=== PATIENT | male | born 1990 | race Caucasian/White ===

== ENCOUNTER 2016-07-24 23:28 | Emergency (ER) | payer MEDICAID ==
[~2016-07-24] VITALS: Ht 195.6 cm; Wt 165.5 kg
[2016-07-25] MEDS ORDERED: ASPIRIN 81MG TABLET PO ONE (01:00)
[2016-07-25 01:19] LABS: BASOPHILS % 0.5 % (0.0-2.0); EOSINOPHILS % 1.1 % (0.0-5.0); HEMATOCRIT. 45.7 % (42.0-52.0); HEMOGLOBIN. 15.5 g/dL (14.0-18.0); LYMPHOCYTES % 32.3 % (20.0-50.0); MEAN CORPUSCULAR HEMOGLOBIN 29.8 pg (28.0-32.0); MEAN CORPUSCULAR HGB CONC 33.9 g/dL (31.0-37.0); MEAN CORPUSCULAR VOLUME 87.8 fL (80.0-94.0); MEAN PLATELET VOLUME 8.8 fl (7.4-10.4); MONOCYTES % 5.6 % (2.0-8.0); NEUTROPHILS % 60.5 % (40.0-76.0); PLATELET 228 x1000/uL (130-400); RED BLOOD CELL COUNT 5.21 mill/uL (4.7-6.1); RED CELL DISTRIBUTION WIDTH 12.8 % (11.6-14.6); WHITE BLOOD COUNT 9.1 x1000/uL (4.5-11.0)
[2016-07-25 01:24] LABS: PROTHROMBIN TIME 10.8 sec
[2016-07-25 01:32] LABS: ALANINE AMINOTRANSFERASE 265 IU/L (13-61); ALBUMIN 3.4 g/dL (3.4-5.0); ANION GAP 14; CALCIUM 8.8 mg/dL (8.5-10.1); CARBON DIOXIDE 27 mEq/L (21-32); CHLORIDE 100 mEq/L (98-107); INDEX HEMOLYSI 1 (1-3); INDEX ICTERIC 1 (1-4); INDEX LIPEMIC 1 (1-3); TROPONIN I < 0.02 ng/mL (0.00-0.04); UREA NITROGEN BLOOD 14 mg/dL (7-21); eGFR > 60 mL/min (>60)
[2016-07-25 03:56] VITALS: BP 127/96
== END 2016-07-25 07:54 | disposition home or self-care (01) ==
LOC: ER 07-25 07:54
DX: R07.9 Chest pain, unspecified (principal); E11.9 Type 2 diabetes mellitus without complications; Z87.891 Personal history of nicotine dependence
CPT/HCPCS: 36415; 71010; 80053; 84484; 85025; 85610; 93005; 99285; Z7610

== ENCOUNTER 2016-11-22 14:18 | Emergency (ER) | payer MEDICAID ==
[~2016-11-22] VITALS: Ht 185.4 cm; Wt 116.0 kg
[2016-11-22] MEDS: IBUPROFEN 600MG TABLET PO STA (15:30)
[2016-11-22 16:07] LABS: BASOPHILS % 0.2 % (0.0-2.0); EOSINOPHILS % 1.1 % (0.0-5.0); HEMATOCRIT. 44.6 % (42.0-52.0); HEMOGLOBIN. 15.3 g/dL (14.0-18.0); LYMPHOCYTES % 24.2 % (20.0-50.0); MEAN CORPUSCULAR HEMOGLOBIN 29.9 pg (28.0-32.0); MEAN CORPUSCULAR VOLUME 87.1 fL (80.0-94.0); MEAN PLATELET VOLUME 8.6 fl (7.4-10.4); MONOCYTES % 9.3 % (2.0-8.0); NEUTROPHILS % 65.2 % (40.0-76.0); PLATELET 221 x1000/uL (130-400); RED BLOOD CELL COUNT 5.12 mill/uL (4.7-6.1)
[2016-11-22 16:11] LABS: CARBON DIOXIDE 30 mEq/L (21-32); CHLORIDE 98 mEq/L (98-107)
[2016-11-22 16:14] LABS: TROPONIN I < 0.02 ng/mL (0.00-0.04)
[2016-11-22 16:54] VITALS: BP 128/68
== END 2016-11-22 17:37 | disposition left against medical advice (07) ==
LOC: ER 15:20
DX: R07.9 Chest pain, unspecified (principal); E11.65 Type 2 diabetes mellitus with hyperglycemia; I51.9 Heart disease, unspecified
CPT/HCPCS: 36415; 71010; 80053; 82962; 84484; 85025; 93005; 99285; Z7610

== ENCOUNTER 2017-02-15 20:56 | Emergency (ER) | payer MEDICAID ==
[~2017-02-15] VITALS: Ht 195.6 cm; Wt 159.0 kg
[2017-02-15] MEDS ORDERED: SODIUM CHLORIDE 0.9% 1,000 ML IV ONE (21:50)
[2017-02-15 22:29] LABS: BASOPHILS % 1.3 % (0.0-2.0); EOSINOPHILS % 0.9 % (0.0-5.0); HEMATOCRIT. 44.8 % (42.0-52.0); HEMOGLOBIN. 15.4 g/dL (14.0-18.0); LYMPHOCYTES % 28.5 % (20.0-50.0); MEAN CORPUSCULAR HEMOGLOBIN 29.9 pg (28.0-32.0); MEAN CORPUSCULAR VOLUME 87.1 fL (80.0-94.0); MEAN PLATELET VOLUME 8.4 fl (7.4-10.4); MONOCYTES % 6.5 % (2.0-8.0); NEUTROPHILS % 62.8 % (40.0-76.0); PLATELET 242 x1000/uL (130-400); RED BLOOD CELL COUNT 5.14 mill/uL (4.7-6.1); RED CELL DISTRIBUTION WIDTH 13.2 % (11.6-14.6)
[2017-02-15 22:34] LABS: INR 1.1; PROTHROMBIN TIME 11.1 sec (9.4-11.6)
[2017-02-15 22:44] LABS: CARBON DIOXIDE 25 mEq/L (21-32); CHLORIDE 98 mEq/L (98-107); TROPONIN I < 0.02 ng/mL (0.00-0.04)
[2017-02-16] MEDS ORDERED: CEFAZOLIN 1000MG PREMIX 50 ML IV ONE (00:45)
[2017-02-16] MEDS ORDERED: KETOROLAC 15MG/ML VIAL IV ONE (01:15)
[2017-02-16 01:24] VITALS: BP 157/86
== END 2017-02-16 02:15 | disposition home or self-care (01) ==
LOC: ER 20:56
DX: R07.89 Other chest pain (principal); L03.116 Cellulitis of left lower limb; F17.290 Nicotine dependence, other tobacco product, uncomplicated; E11.9 Type 2 diabetes mellitus without complications
CPT/HCPCS: 36415; 71010; 80053; 82962; 84484; 85025; 85610; 93005; 96361; 96365; 96375; 99285; 99406; J0690; J1885; J7030; Z7610

== ENCOUNTER 2017-06-04 18:43 | Emergency (ER) | payer MEDICAID ==
[~2017-06-04] VITALS: Ht 182.9 cm; Wt 163.0 kg
[2017-06-04 19:18] VITALS: BP 132/78
== END 2017-06-04 21:45 | disposition left against medical advice (07) ==
LOC: ER 21:19
DX: R07.9 Chest pain, unspecified (principal); Z53.21 Procedure and treatment not carried out due to patient leaving prior to being seen by health care provider

== ENCOUNTER 2017-12-06 00:10 | Emergency (ER) | payer MEDICAID ==
[~2017-12-06] VITALS: Ht 182.9 cm; Wt 150.0 kg
[2017-12-06] MEDS ORDERED: SODIUM CHLORIDE 0.9% 1,000 ML IV ONE (01:15)
[2017-12-06 01:24] LABS: BASOPHILS % 0.3 % (0.0-2.0); EOSINOPHILS % 1.6 % (0.0-5.0); HEMATOCRIT. 46.2 % (42.0-52.0); LYMPHOCYTES % 30.3 % (20.0-50.0); MEAN CORPUSCULAR HEMOGLOBIN 30.9 pg (28.0-32.0); MEAN CORPUSCULAR VOLUME 89.3 fL (80.0-94.0); MEAN PLATELET VOLUME 8.4 fl (7.4-10.4); MONOCYTES % 11.2 % (2.0-8.0); NEUTROPHILS % 56.6 % (40.0-76.0); PLATELET 193 x1000/uL (130-400); RED BLOOD CELL COUNT 5.17 mill/uL (4.7-6.1); RED CELL DISTRIBUTION WIDTH 12.7 % (11.6-14.6)
[2017-12-06] MEDS ORDERED: KETOROLAC 30MG/ML VIAL IV ONE (01:30)
[2017-12-06 01:31] LABS: CHLORIDE 99 mEq/L (98-107)
[2017-12-06 01:32] LABS: INR 1.1; PARTIAL THROMBOPLASTIN TIME 26.5 sec (23.4-31.0); PROTHROMBIN TIME 10.7 sec (9.1-11.1)
[2017-12-06 01:44] LABS: BETA HYDROXYBUTYRATE 0.1 mMol/L (0.0-0.3)
[2017-12-06 04:35] VITALS: BP 123/80
== END 2017-12-06 04:36 | disposition home or self-care (01) ==
LOC: ER 00:10
DX: R07.89 Other chest pain (principal); E11.9 Type 2 diabetes mellitus without complications; F17.200 Nicotine dependence, unspecified, uncomplicated
CPT/HCPCS: 36415; 71045; 80053; 82010; 83036; 83690; 84484; 85025; 85610; 85730; 93005; 96361; 96374; 99285; 99406; J1885; J7030

== ENCOUNTER 2018-01-25 00:58 | Emergency (ER) | payer MEDICAID ==
[~2018-01-25] VITALS: Ht 182.9 cm; Wt 150.0 kg
[2018-01-25 03:10] VITALS: BP 153/91
== END 2018-01-25 05:07 | disposition left against medical advice (07) ==
LOC: ER 05:03
DX: N50.811 Right testicular pain (principal); Z53.21 Procedure and treatment not carried out due to patient leaving prior to being seen by health care provider

== ENCOUNTER 2018-01-25 15:37 | Emergency (ER) | payer MEDICAID ==
[~2018-01-25] VITALS: Ht 185.4 cm; Wt 160.0 kg
[2018-01-25] MEDS ORDERED: KETOROLAC 60MG/2ML VIAL IM ONE (19:30)
[2018-01-25 20:23] LABS: CLARITY URINE CLEAR (CLEAR); COLOR URINE YELLOW (YELLOW); KETONES URINE NEGATIVE (NEGATIVE); LEUKOCYTE ESTERASE URINE NEGATIVE (NEGATIVE); NITRITE URINE NEGATIVE (NEGATIVE); OCCULT BLOOD URINE NEGATIVE (NEGATIVE); PROTEIN URINE NEGATIVE (NEGATIVE); SPECIFIC GRAVITY URINE 1.045 (1.005-1.030); UROBILINOGEN URINE 0.2 E.U./dL (0.2-1.0)
[2018-01-25] MEDS ORDERED: ACETAMINOPHEN WITH CODEINE 300/30MG TABLET PO ONE (22:30)
[2018-01-25 22:37] VITALS: BP 123/70
== END 2018-01-25 22:38 | disposition home or self-care (01) ==
LOC: ER 15:37
DX: N50.811 Right testicular pain (principal); E11.9 Type 2 diabetes mellitus without complications
CPT/HCPCS: 76870; 81003; 93976; 96372; 99285; J1885

== ENCOUNTER 2018-02-27 18:45 | Emergency (ER) | payer MEDICAID ==
[~2018-02-27] VITALS: Ht 182.9 cm; Wt 119.0 kg
[2018-02-27 18:56] VITALS: BP 146/62
== END 2018-02-27 21:30 | disposition left against medical advice (07) ==
LOC: ER 19:38
DX: Z53.21 Procedure and treatment not carried out due to patient leaving prior to being seen by health care provider (principal)

== ENCOUNTER 2018-09-29 11:42 | Emergency (ER) | payer MEDICAID ==
[~2018-09-29] VITALS: Ht 182.9 cm; Wt 155.0 kg
[2018-09-29] MEDS ORDERED: FAMOTIDINE 20MG/2ML VIAL IV ONE (12:45)
[2018-09-29] MEDS ORDERED: DEXAMETHASONE 4MG/ML 1ML VIAL IV ONE (12:45)
[2018-09-29] MEDS ORDERED: DIPHENHYDRAMINE 50MG/ML VIAL IV ONE (12:45)
[2018-09-29 13:02] LABS: BASOPHILS % 0.6 % (0.0-2.0); EOSINOPHILS % 1.2 % (0.0-5.0); HEMATOCRIT. 43.1 % (42.0-52.0); HEMOGLOBIN. 15.2 g/dL (14.0-18.0); LYMPHOCYTES % 26.2 % (20.0-50.0); MEAN CORPUSCULAR HEMOGLOBIN 31.8 pg (28.0-32.0); MEAN CORPUSCULAR VOLUME 90.4 fL (80.0-94.0); MEAN PLATELET VOLUME 7.9 fl (7.4-10.4); MONOCYTES % 8.8 % (2.0-8.0); NEUTROPHILS % 63.2 % (40.0-76.0); PLATELET 200 x1000/uL (130-400); RED BLOOD CELL COUNT 4.77 mill/uL (4.7-6.1); RED CELL DISTRIBUTION WIDTH 12.5 % (11.6-14.6)
[2018-09-29 13:08] LABS: CHLORIDE 101 mEq/L (98-107)
[2018-09-29 13:09] LABS: PROTHROMBIN TIME 10.7 sec (9.6-11.0)
[2018-09-29 16:10] VITALS: BP 145/75
[2018-10-01 04:16] LABS: HIV SCREEN 4G Non Reactive (Non Reactive)
== END 2018-09-29 15:15 | disposition home or self-care (01) ==
LOC: ER 12:16
DX: T78.40XA Allergy, unspecified, initial encounter (principal); Z88.0 Allergy status to penicillin; X58.XXXA Exposure to other specified factors, initial encounter
CPT/HCPCS: 36415; 80053; 85025; 85610; 87389; 96374; 96375; 99283; J1100; J1200; J3490

== ENCOUNTER 2018-10-29 16:46 | Emergency (ER) | payer MEDICAID ==
[~2018-10-29] VITALS: Ht 167.6 cm; Wt 151.0 kg
[2018-10-29] MEDS ORDERED: IBUPROFEN 600MG TABLET PO STA (20:17)
[2018-10-29 21:21] VITALS: BP 150/90
[2018-10-29] MEDS ORDERED: HYDROCORTISONE 1% OINT 28.35GM TOP SCH (22:00)
== END 2018-10-29 21:21 | disposition home or self-care (01) ==
LOC: ER 17:37
DX: R07.89 Other chest pain (principal); L30.9 Dermatitis, unspecified; F17.200 Nicotine dependence, unspecified, uncomplicated; E11.9 Type 2 diabetes mellitus without complications
CPT/HCPCS: 71045; 93005; 99283; 99406; Z7610

== ENCOUNTER 2018-11-29 12:46 | Emergency (ER) | payer MEDICAID ==
[~2018-11-29] VITALS: Ht 185.4 cm; Wt 168.0 kg
[2018-11-29] MEDS ORDERED: KETOROLAC 30MG/ML VIAL IV STA (13:58)
[2018-11-29] MEDS ORDERED: SODIUM CHLORIDE 0.9% 1,000 ML IV ONE (13:58)
[2018-11-29] MEDS ORDERED: MORPHINE SULFATE 4 MG/ML CPJ (NOT FOR IM USE) IV STA (13:58)
[2018-11-29] MEDS ORDERED: MAGNESIUM/ALUMINUM HYDROXIDE/SIMETHICONE 30ML UDC PO STA (13:58)
[2018-11-29] MEDS ORDERED: FAMOTIDINE 20MG/2ML VIAL IV STA (13:58)
[2018-11-29] MEDS ORDERED: ONDANSETRON HCL 4MG/2ML INJ IV STA (13:58)
[2018-11-29 14:42] LABS: BASOPHILS % 0.2 % (0.0-2.0); EOSINOPHILS % 0.4 % (0.0-5.0); HEMOGLOBIN. 16.7 g/dL (14.0-18.0); LYMPHOCYTES % 8.2 % (20.0-50.0); MEAN CORPUSCULAR HEMOGLOBIN 31.8 pg (28.0-32.0); MEAN CORPUSCULAR VOLUME 89.6 fL (80.0-94.0); MEAN PLATELET VOLUME 8.7 fl (7.4-10.4); MONOCYTES % 5.4 % (2.0-8.0); NEUTROPHILS % 85.8 % (40.0-76.0); PLATELET 213 x1000/uL (130-400); RED BLOOD CELL COUNT 5.25 mill/uL (4.7-6.1); RED CELL DISTRIBUTION WIDTH 12.2 % (11.6-14.6)
[2018-11-29 14:47] LABS: CHLORIDE 100 mEq/L (98-107); PROTHROMBIN TIME 10.5 sec (9.6-11.0)
[2018-11-29 14:51] LABS: ETHANOL BLOOD < 10 mg/dL
[2018-11-29] MEDS ORDERED: INSULIN REGULAR (HUMULIN R) 300UNITS/3ML SUBCUT ONE (15:30)
[2018-11-29] MEDS ORDERED: METOCLOPRAMIDE HCL 10MG/2ML VIAL IV ONE (15:30)
[2018-11-29] MEDS ORDERED: TRAMADOL 50MG TABLET PO ONE (15:30)
[2018-11-29 16:00] VITALS: BP 132/78
== END 2018-11-29 16:01 | disposition home or self-care (01) ==
LOC: ER 12:46
DX: E11.65 Type 2 diabetes mellitus with hyperglycemia (principal); K31.84 Gastroparesis; R11.2 Nausea with vomiting, unspecified
CPT/HCPCS: 36415; 74176; 80053; 80320; 83690; 84484; 85025; 85610; 96361; 96372; 96374; 96375; 99284; J1815; J1885; J2270; J2765; J3490; J7030; G0480

== ENCOUNTER 2018-12-20 09:30 | Emergency (ER) | payer MEDICAID ==
[~2018-12-20] VITALS: Ht 182.9 cm; Wt 160.0 kg
[2018-12-20] MEDS ORDERED: DEXAMETHASONE 10 MG/ML VIAL IM ONE (11:00)
[2018-12-20] MEDS ORDERED: FAMOTIDINE 20MG TABLET PO ONE (11:00)
[2018-12-20] MEDS ORDERED: DIPHENHYDRAMINE 50MG CAPSULE PO ONE (11:00)
[2018-12-20 11:24] VITALS: BP 126/84
== END 2018-12-20 11:25 | disposition home or self-care (01) ==
LOC: ER 09:30
DX: T78.49XA Other allergy, initial encounter (principal); X58.XXXA Exposure to other specified factors, initial encounter; E11.9 Type 2 diabetes mellitus without complications
CPT/HCPCS: 96372; 99283; J1100; Q0163

== ENCOUNTER 2019-08-31 09:22 | Emergency (ER) | payer MEDICAID ==
[~2019-08-31] VITALS: Ht 182.9 cm; Wt 145.5 kg
[2019-08-31 09:36] VITALS: BP 151/78
== END 2019-08-31 10:35 | disposition home or self-care (01) ==
LOC: ER 09:22
DX: J11.1 Influenza due to unidentified influenza virus with other respiratory manifestations (principal); E11.9 Type 2 diabetes mellitus without complications; R09.81 Nasal congestion; M79.10 Myalgia, unspecified site; Z20.828 Contact with and (suspected) exposure to other viral communicable diseases
CPT/HCPCS: 99281

== ENCOUNTER 2019-08-31 22:02 | Emergency (ER) | payer MEDICAID ==
[~2019-08-31] VITALS: Ht 182.9 cm; Wt 145.0 kg
[2019-08-31] MEDS ORDERED: IBUPROFEN 600MG TABLET PO STA (22:49)
[2019-08-31] MEDS ORDERED: SODIUM CHLORIDE 0.9% 1,000 ML IV ONE (23:03)
[2019-08-31 23:58] LABS: BASOPHILS % 0.3 % (0.0-2.0); EOSINOPHILS % 0.2 % (0.0-5.0); HEMATOCRIT. 48.9 % (42.0-52.0); HEMOGLOBIN. 17.1 g/dL (14.0-18.0); LYMPHOCYTES % 39.1 % (20.0-50.0); MEAN CORPUSCULAR HEMOGLOBIN 31.4 pg (28.0-32.0); MEAN CORPUSCULAR VOLUME 90.1 fL (80.0-94.0); MEAN PLATELET VOLUME 9.3 fl (7.4-10.4); MONOCYTES % 11.4 % (2.0-8.0); PLATELET 159 x1000/uL (130-400); RED BLOOD CELL COUNT 5.43 mill/uL (4.7-6.1); RED CELL DISTRIBUTION WIDTH 12.6 % (11.6-14.6)
[2019-09-01] MEDS ORDERED: CEFTRIAXONE 1 G PREMIX 50 ML IV NR (01:30)
[2019-09-01 01:33] LABS: CHLORIDE 103 mEq/L (98-107)
[2019-09-01 02:37] VITALS: BP 126/79
== END 2019-09-01 02:38 | disposition home or self-care (01) ==
LOC: ER 22:02
DX: J18.9 Pneumonia, unspecified organism (principal); Z03.818 Encounter for observation for suspected exposure to other biological agents ruled out; R74.0 Nonspecific elevation of levels of transaminase and lactic acid dehydrogenase [LDH]; E11.65 Type 2 diabetes mellitus with hyperglycemia
CPT/HCPCS: 36415; 71045; 80053; 82962; 85025; 87804; 96361; 96365; 99284; J0696; J7030

== ENCOUNTER 2019-09-22 22:25 | Emergency (ER) | payer MEDICAID ==
[~2019-09-22] VITALS: Ht 182.9 cm; Wt 101.0 kg
[2019-09-22] MEDS ORDERED: AMOXICILLIN 500 MG CAPSULE PO ONE (23:15)
[2019-09-22] MEDS ORDERED: KETOROLAC 30MG/ML VIAL IM ONE (23:15)
[2019-09-22 23:39] VITALS: BP 129/75
== END 2019-09-22 23:40 | disposition home or self-care (01) ==
LOC: ER 22:25
DX: K04.7 Periapical abscess without sinus (principal); R03.0 Elevated blood-pressure reading, without diagnosis of hypertension; E11.9 Type 2 diabetes mellitus without complications
CPT/HCPCS: 96372; 99283; J1885

== ENCOUNTER 2020-04-02 14:35 | Emergency (ER) | payer MEDICAID ==
[~2020-04-02] VITALS: Ht 182.9 cm; Wt 118.0 kg
[2020-04-02 15:19] VITALS: BP 110/47
== END 2020-04-02 19:17 | disposition left against medical advice (07) ==
LOC: ER 14:35
DX: Z53.21 Procedure and treatment not carried out due to patient leaving prior to being seen by health care provider (principal); I49.9 Cardiac arrhythmia, unspecified
CPT/HCPCS: 93005

== ENCOUNTER 2021-02-06 08:54 | Emergency (ER) | payer MEDICAID ==
[~2021-02-06] VITALS: Ht 185.4 cm; Wt 136.0 kg
[2021-02-06] MEDS ORDERED: IBUPROFEN 600MG TABLET PO STA (09:25)
[2021-02-06 12:26] VITALS: BP 140/79
== END 2021-02-06 12:29 | disposition home or self-care (01) ==
LOC: ER 09:05
DX: R51.9 Headache, unspecified (principal); R06.02 Shortness of breath; E11.9 Type 2 diabetes mellitus without complications; I10 Essential (primary) hypertension; F17.290 Nicotine dependence, other tobacco product, uncomplicated; F14.10 Cocaine abuse, uncomplicated; F12.10 Cannabis abuse, uncomplicated
CPT/HCPCS: 93005; 99291; 99406

== ENCOUNTER 2021-04-02 12:29 | Emergency (ER) | payer MEDICAID ==
[~2021-04-02] VITALS: Ht 182.9 cm; Wt 127.0 kg
[2021-04-02 12:38] VITALS: BP 149/88
[2021-04-02] MEDS ORDERED: SULF1TAB48 MT (12:43)
[2021-04-02] MEDS ORDERED: CEPH500T MT (12:43)
[2021-04-02] MEDS ORDERED: ACETAMINOPHEN WITH CODEINE 300/30MG TABLET PO ONE (12:45)
== END 2021-04-02 13:11 | disposition home or self-care (01) ==
LOC: ER 12:34
DX: L03.319 Cellulitis of trunk, unspecified (principal); F14.10 Cocaine abuse, uncomplicated; F12.10 Cannabis abuse, uncomplicated; E11.9 Type 2 diabetes mellitus without complications; I10 Essential (primary) hypertension
CPT/HCPCS: 99283

== ENCOUNTER 2021-04-06 13:35 | Inpatient (IN) | payer MEDICAID ==
[~2021-04-06] VITALS: Ht 182.9 cm; Wt 148.8 kg
[~2021-04-06 13:35] MED LIST: CEPH500T MT; SULF1TAB48 MT
[2021-04-06] MEDS ORDERED: MORPHINE SULFATE 4 MG/ML CPJ (NOT FOR IM USE) IV STA (16:49)
[2021-04-06] MEDS ORDERED: SODIUM CHLORIDE 0.9% 1,000 ML IV ONE (17:00)
[2021-04-06] MEDS ORDERED: CLINDAMYCIN 600 MG in DEXTROSE 5% WATER 50 ML IV ONE (17:00)
[2021-04-06] MEDS ORDERED: CLINDAMYCIN 600MG PREMIX 50 ML IV SCH (17:30)
[2021-04-06 18:01] LABS: BASOPHILS % 0.4 % (0.0-2.0); EOSINOPHILS % 1.7 % (0.0-5.0); HEMATOCRIT. 45.2 % (42.0-52.0); HEMOGLOBIN. 15.3 g/dL (14.0-18.0); LYMPHOCYTES % 8.6 % (20.0-50.0); MEAN CORPUSCULAR HEMOGLOBIN 30.3 pg (28.0-32.0); MEAN CORPUSCULAR VOLUME 89.4 fL (80.0-94.0); MEAN PLATELET VOLUME 8.5 fl (7.4-10.4); MONOCYTES % 7.7 % (2.0-8.0); NEUTROPHILS % 81.6 % (40.0-76.0); PLATELET 279 x1000/uL (130-400); RED BLOOD CELL COUNT 5.06 mill/uL (4.7-6.1); RED CELL DISTRIBUTION WIDTH 12.1 % (11.6-14.6)
[2021-04-06 18:04] LABS: CHLORIDE 100 mEq/L (98-107)
[2021-04-06 21:45] VITALS: BP 126/52
[2021-04-06 23:20] VITALS: BP 139/68
[2021-04-06] MEDS ORDERED: METF-414 PO (23:52)
[2021-04-07] VITALS: BP 131/81
[2021-04-07] MEDS ORDERED: CLINDAMYCIN 600 MG in DEXTROSE 5% WATER 50 ML IV SCH
[2021-04-07] MEDS ORDERED: DEXTROSE 50% WATER 50ML SYRINGE IV PRN
[2021-04-07] MEDS ORDERED: METFORMIN HCL 500MG TABLET PO PRN
[2021-04-07] MEDS ORDERED: ALBUTEROL 6.7GM HFA INHALER ORI PRN
[2021-04-07] MEDS: HYDROCODONE/ACETAMINOPHEN 5/325MG TABLET PO PRN ×3 (01:23→21:10)
[2021-04-07] MEDS: ACETAMINOPHEN 325MG TABLET PO PRN ×3 (01:23→21:11)
[2021-04-07 04:00] VITALS: BP 129/63
[2021-04-07] MEDS: CLINDAMYCIN 600MG PREMIX 50 ML IV SCH ×3 (04:58→21:13)
[2021-04-07] MEDS: BLOOD SUGAR DIAGNOSTIC STRIP TEST SCH ×4 (06:26→21:09)
[2021-04-07 09:00] VITALS: BP 132/88
[2021-04-07] MEDS ORDERED: METFORMIN HCL 500MG TABLET PO SCH (09:00)
[2021-04-07] MEDS ORDERED: DEXAMETHASONE 4MG/ML 1ML VIAL IV SCH (09:00)
[2021-04-07 09:55] LABS: HEMATOCRIT 40.4 % (42.0-52.0); MEAN CORPUSCULAR HEMOGLOBIN 30.9 pg (28.0-32.0); MEAN CORPUSCULAR VOLUME 89.3 fL (80.0-94.0); PLATELET 254 x1000/uL (130-400); RED BLOOD CELL COUNT 4.52 mill/uL (4.7-6.1)
[2021-04-07] MEDS ORDERED: INSULIN GLARGINE UD 100 UNITS/ML SYR SUBCUT SCH ×2 (10:00→22:00)
[2021-04-07 10:07] LABS: CHLORIDE 98 mEq/L (98-107)
[2021-04-07] MEDS: METFORMIN HCL 500MG TABLET PO SCH ×2 (10:10→18:04)
[2021-04-07] MEDS: INSULIN LISPRO 100 UNITS/ML SUBCUT SCH ×4 (10:12→21:20)
[2021-04-07 10:17] LABS: LDL CHOLESTEROL 72 mg/dL (5-100)
[2021-04-07 10:20] LABS: HDL CHOLESTEROL 21 mg/dL (40-59)
[2021-04-07 12:00] VITALS: BP 121/82
[2021-04-07 16:00] VITALS: BP 127/80
[2021-04-07 20:00] VITALS: BP 132/79
== END 2021-04-07 22:17 | disposition left against medical advice (07) | DRG 720 ==
LOC: ER 13:35 → ENRESERV 20:30 → 6EST 21:38 → 7WST 22:31
PROVIDERS: ADMIT Internal Medicine; ATTEND Internal Medicine
DX: A41.9 Sepsis, unspecified organism (principal); U07.1 COVID-19; E88.09 Other disorders of plasma-protein metabolism, not elsewhere classified; L02.212 Cutaneous abscess of back [any part, except buttock and flank]; L03.312 Cellulitis of back [any part except buttock and flank]; E11.65 Type 2 diabetes mellitus with hyperglycemia; F19.10 Other psychoactive substance abuse, uncomplicated; Z53.29 Procedure and treatment not carried out because of patient's decision for other reasons; R74.01 Elevation of levels of liver transaminase levels; E66.9 Obesity, unspecified; Z68.41 Body mass index [BMI] 40.0-44.9, adult; Z71.3 Dietary counseling and surveillance
CPT/HCPCS: 36415; 71045; 80048; 80053; 80061; 82728; 82962; 83036; 83605; 83615; 84145; 84484; 85025; 85027; 86140; 87426; 93005; 99285; J1100; J1815; J2270; J3490; J7030; J7060; U0003; U0005